=== PATIENT | male | born 1980 | race Caucasian/White ===

== ENCOUNTER 2023-02-26 02:14 | Emergency (ER) | payer BC, SELFPAY ==
[2023-02-26 02:28] VITALS: BP 126/73; PULSE 88; RESP 20; TEMP 36.6; O2SAT 98; BMI 37.8
--- NOTE | 2023-02-26 02:28 | ED.GENADULT ---
HPI - General Adult General Chief complaint: Abdominal Pain Stated complaint: FOOD POISIONING Time Seen by Provider: 02/26/23 02:20 Source: patient Mode of arrival: Ambulatory Limitations: no limitations History of Present Illness HPI narrative: Patient is a 42-year-old male. Has had multiple abdominal surgeries in the past coming from a trauma. He has a known hernia. He states he had a fairly sudden onset of upper abdominal discomfort with nausea and diarrhea. No recent travel. No recent antibiotics. No blood in his stool. No fevers. Related Data Previous Rx's Medication Instructions Recorded ondansetron 4 mg disintegrating 4 mg PO Q6H PRN nausea and 02/26/23 tablet vomiting #14 tabs Allergies Allergy/AdvReac Type Severity Reaction Status Date / Time No Known Drug Allergies Allergy Verified 02/26/23 02:28 Review of Systems Constitutional Constitutional: Reports system reviewed and no additional complaints, except as documented Cardiovascular Cardiovascular: Reports system reviewed and no additional complaints, except as documented Respiratory Respiratory: Reports system reviewed and no additional complaints, except as documented Gastrointestinal Gastrointestinal: Reports system reviewed and no additional complaints, except as documented Genitourinary Genitourinary: Reports system reviewed and no additional complaints, except as documented Exam Initial Vital Signs Initial Vital Signs: Vital Signs Temperature 97.8 F 02/26/23 02:28 Pulse Rate 88 02/26/23 02:28 Respiratory Rate 20 02/26/23 02:28 Blood Pressure 126/73 02/26/23 02:28 Pulse Oximetry 98 02/26/23 02:28 Oxygen Delivery Method Room Air 02/26/23 02:28 Const General: cooperative and No ill appearing [facility] Head: normal to inspection and normocephalic Resp Effort & Inspection: normal respiratory effort Auscultation: clear to auscultation bilaterally Cardio Rate: regular rate Rhythm: regular rhythm GI Inspection: normal to inspection and non-distended Palpation: soft and tender (Upper abdomen) Skin General: no rashes or lesions noted Neuro General: patient alert Course Orders Ordered: ED Orders 02/26/23 02:35 Complete Blood Count AUTO DIFF Stat Comprehensive Metabolic Panel Stat Lipase Stat Discontinued Medications Sodium Chloride (Normal Saline 0.9%) 1,000 mls @ 1,000 mls/hr IV BOLUS ONE Stop: 02/26/23 03:19 Last Admin: 02/26/23 02:39 Dose: 1,000 mls/hr Documented By: KRISTEL Ketorolac Tromethamine (Ketorolac 30 Mg/Ml Vial) 30 mg IV NOW ONE Stop: 02/26/23 02:43 Last Admin: 02/26/23 03:03 Dose: 30 mg Documented By: STAR Ondansetron HCl (Ondansetron 4 Mg/2 Ml Inj) 4 mg IV NOW ONE Stop: 02/26/23 02:27 Last Admin: 02/26/23 02:39 Dose: 4 mg Documented By: KRISTEL Vital Signs Vital signs: Vital Signs - 8 hr 02/26/23 02:28 Temperature 97.8 F Pulse Rate 88 Respiratory Rate 20 Blood Pressure 126/73 Pulse Oximetry 98 Oxygen Delivery Method Room Air Medical Decision Making Lab Data Lab results reviewed: Yes I reviewed the patient's lab results. 02/26/23 02:35 02/26/23 02:35 Labs: Lab Results 02/26/23 02/26/23 Range/Units 02:35 02:35 WBC 13.9 H (4.5-11.0) X10^3/uL RBC 5.43 (4.5-5.9) X10^6/uL Hgb 17.2 (13.5-17.5) g/dL Hct 48.9 (41-53) % MCV 90.1 (80-100) fL MCH 31.7 (26-34) PG MCHC 35.2 (30-36) % RDW 13.7 (11.6-14.8) % Plt Count 234 (150-400) X10^3/uL Neut % (Auto) 91.3 H (50-75) % Lymph % (Auto) 3.0 L (25-40) % Ware % (Auto) 4.9 (3-14) % Eos % (Auto) 0.6 L (2-4) % Baso % (Auto) 0.2 (0-2) % Neut # (Auto) 50335 H (9329-8665) /uL Lymph # (Auto) 400 L (8629-3981) /uL Ware # (Auto) 700 (0-900) /uL Eos # (Auto) 100 (0-450) /uL Baso # (Auto) 0 (0-100) /uL Sodium 139 (137-145) mmol/L Potassium 4.0 (3.4-5.1) mmol/L Chloride 105 (98-107) mmol/L Carbon Dioxide 20 L (22-32) mmol/L BUN 23 H (9-20) mg/dL Creatinine 1.71 H (0.66-1.25) mg/dL Estimated GFR 50 L (>60) mL/min BUN/Creatinine Ratio 13.5 (6-22) Glucose 172 H (70-100) mg/dL Calcium 9.9 (8.4-10.2) mg/dL Total Bilirubin 0.9 (0.2-1.3) mg/dL AST 37 (17-59) IU/L ALT 38 (<50) IU/L Alkaline Phosphatase 75 (38-126) U/L Total Protein 8.5 H (6.3-8.2) g/dL Albumin 4.8 (3.5-5.0) g/dL Globulin 3.7 (1.7-4.1) g/dL Albumin/Globulin Ratio 1.3 (1.0-2.8) Lipase 59 (23-300) U/L MDM Narrative Medical decision making narrative: Patient reports improvement of symptoms after medications here in the ER. He was able to tolerate a small amount of liquid. His LFTs are unremarkable. Leukocytosis most likely from the vomiting and diarrhea. No indication for antibiotics. No indication for radiologic studies. Will discharge patient home with nausea medications and instructions for follow-up. He expressed understanding and agreement. Discharge Plan Departure Patient Disposition: Home Clinical Impression: Nausea vomiting and diarrhea Instructions: Diarrhea, Nausea and Vomiting-Adult Activity Restrictions/Additional Instructions: I would expect improvement of your symptoms over the next couple days. Be sure that you increase your fluid intake by drinking small amounts over longer periods of time. Contact your primary doctor for a follow-up. Return to the emergency department for new symptoms. Prescriptions: New ondansetron 4 mg tablet,disintegrating 4 mg PO Q6H PRN (Reason: nausea and vomiting) Qty: 14 0RF Stand Alone Forms: Patient Portal/API
[2023-02-26] MEDS: ONDANSETRON 4 MG/2 ML INJ IV (02:39)
[2023-02-26] MEDS: SODIUM CHLORIDE 0.9% 1,000 ML 1000 ML IV (02:39)
[2023-02-26 02:46] LABS: Add Manual Diff / Slide Review NO; Basophils Absolute Auto 0 /uL (0-100); Basophils Percent Auto 0.2 % (0-2); Eosinophils Absolute Auto 100 /uL (0-450); Eosinophils Percent Auto 0.6 % (2-4); Hematocrit 48.9 % (41-53); Hemoglobin 17.2 g/dL (13.5-17.5); Lymphocytes Absolute Auto 400 /uL (1100-4500); Mean Corpuscular HGB Conc 35.2 % (30-36); Mean Corpuscular Hemoglobin 31.7 PG (26-34); Mean Corpuscular Volume 90.1 fL (80-100); Monocytes Absolute Auto 700 /uL (0-900); Monocytes Percent Auto 4.9 % (3-14); Neutrophils Absolute Auto 12600 /uL (1500-7000); Neutrophils Percent Auto 91.3 % (50-75); Platelet Count 234 X10^3/uL (150-400); Red Blood Cell Count 5.43 X10^6/uL (4.5-5.9); Red Cell Distribution Width 13.7 % (11.6-14.8); White Blood Cell Count 13.9 X10^3/uL (4.5-11.0)
[2023-02-26 02:55] LABS: Alanine Aminotransferase 38 IU/L (<50); Albumin 4.8 g/dL (3.5-5.0); Albumin Globulin Ratio 1.3 (1.0-2.8); Alkaline Phosphatase 75 U/L (38-126); Aspartate Aminotransferase 37 IU/L (17-59); BUN Creatinine Ratio 13.5 (6-22); Bilirubin Total 0.9 mg/dL (0.2-1.3); Blood Urea Nitrogen 23 mg/dL (9-20); Calcium 9.9 mg/dL (8.4-10.2); Carbon Dioxide 20 mmol/L (22-32); Chloride 105 mmol/L (98-107); Estimated Glomerular Filt Rate 50 mL/min (>60); Globulin 3.7 g/dL (1.7-4.1); Glucose 172 mg/dL (70-100); HEMOLYSIS 22 (0-50); Lipase 59 U/L (23-300); Sodium 139 mmol/L (137-145); Total Protein 8.5 g/dL (6.3-8.2)
[2023-02-26] MEDS: KETOROLAC 30 MG/ML VIAL IV (03:03)
[2023-02-26] MEDS: ONDANSETRON 4 MG ODT PREPACK 1 BOTTLE MISC (04:01)
[2023-02-26 04:04] VITALS: BP 142/81; PULSE 91; RESP 16; O2SAT 95
== END 2023-02-26 04:07 | disposition home or self-care (01) ==
PROVIDERS: Emergency Provider Emergency Medicine
DX: R10.10 Upper abdominal pain, unspecified (principal); R11.2 Nausea with vomiting, unspecified; R19.7 Diarrhea, unspecified
CPT/HCPCS: 36415; 80053; 83690; 85025; 96374; 96375; 99284; J1885; J2405